=== PATIENT | male | born 1990 | race Caucasian/White ===

== ENCOUNTER 2017-08-25 22:18 | Emergency (ER) | payer OTHER ==
[~2017-08-25] VITALS: Ht 175.3 cm; Wt 86.0 kg
[2017-08-25 23:15] LABS: HEMATOCRIT 42.8 % (38.0-50.0); HEMOGLOBIN 14.3 G/DL (12.5-16.6); MCH 30.8 PG (29.0-34.0); MCHC 33.4 G/DL (30.0-36.0); MCV 92.2 FL (86-99); PLATELET COUNT 261 K/uL (156-360); RBC DIS.WIDTH-CV 12.7 % (11.8-14.6); RBC DIS.WIDTH-SD 42.9 % (39-53); RED BLOOD COUNT 4.64 M/uL (4.00-5.50); WHITE BLOOD COUNT 13.8 K/uL (4.1-10.2)
[2017-08-25 23:20] LABS: INTER. NORMALIZED RATIO 0.9
[2017-08-25 23:23] LABS: PTT 30.8 SEC (25-37)
[2017-08-25 23:28] LABS: ALBUMIN 4.1 g/dL (3.2-4.8); CHLORIDE 101 mEq/L (99-109); POTASSIUM 3.9 mEq/L (3.7-5.4); SODIUM 135 mEq/L (136-147)
[2017-08-25 23:30] LABS: GLUCOSE 106 mg/dL (70-99)
[2017-08-25 23:31] LABS: TOTAL PROTEIN 7.2 g/dL (6.4-8.3)
[2017-08-25 23:32] LABS: TOTAL BILIRUBIN 0.3 mg/dL (0.0-1.0)
[2017-08-25 23:33] LABS: SERUM ETHYL ALCOHOL < 10 mg/dL
[2017-08-25 23:34] LABS: ALKALINE PHOSPHATASE 68 IU/L (3-129); CREATININE 0.9 mg/dL (0.6-1.3)
[2017-08-25 23:35] LABS: GFR ESTIMATE (CALCULATED) > 59 mL/min/ (58.99-99999); UREA NITROGEN (BUN) 15 mg/dL (9-23)
[2017-08-25 23:36] LABS: AST (GOT) 37 IU/L (2-34)
[2017-08-25 23:37] LABS: ALT (GPT) 46 IU/L (3-49)
[2017-08-25 23:38] LABS: LIPASE 14 U/L (1.0-51.0)
[2017-08-26 00:49] LABS: AMPHETAMINE NEGATIVE (500 ng/mL); BARBITURATES NEGATIVE (200 ng/mL); BENZODIAZEPINES NEGATIVE (150 ng/mL); BUPRENORPHINE PRESUMPTIVE POSITIVE (10 ng/mL); COCAINE NEGATIVE (150 ng/mL); METHADONE NEGATIVE (200 ng/mL); METHAMPHETAMINE NEGATIVE (500 ng/mL); OPIATES (MORPHINE) NEGATIVE (100 ng/mL); OXYCODONE NEGATIVE (100 ng/mL); PHENCYCLIDINE NEGATIVE (25 ng/mL); PROPOXYPHENE NEGATIVE (300 ng/mL); THC CANNABINOIDS NEGATIVE (50 ng/mL); TRICYCLIC ANTIDEPRESSANTS NEGATIVE (300 ng/mL)
[2017-08-26 03:39] VITALS: BP 121/83
== END 2017-08-26 03:40 | disposition home or self-care (01) ==
LOC: EME 22:18
PROVIDERS: Emergency Medicine
DX: L03.115 Cellulitis of right lower limb (principal); R65.10 Systemic inflammatory response syndrome (SIRS) of non-infectious origin without acute organ dysfunction; F19.11 Other psychoactive substance abuse, in remission; F17.200 Nicotine dependence, unspecified, uncomplicated
CPT/HCPCS: 71045; 80053; 83605; 83690; 85027; 85610; 85730; 87040; 93005; 93970; 99281; 99285; G0480; J3370

== ENCOUNTER 2017-09-02 17:27 | Emergency (ER) | payer OTHER ==
[~2017-09-02] VITALS: Ht 175.3 cm; Wt 88.1 kg
[2017-09-02 18:29] LABS: HEMOGLOBIN 13.6 G/DL (12.5-16.6); MCH 30.6 PG (29.0-34.0); MCHC 33.2 G/DL (30.0-36.0); MCV 92.1 FL (86-99); PLATELET COUNT 287 K/uL (156-360); RBC DIS.WIDTH-CV 12.1 % (11.8-14.6); RBC DIS.WIDTH-SD 41.5 % (39-53); RED BLOOD COUNT 4.45 M/uL (4.00-5.50)
[2017-09-02 18:41] LABS: ALBUMIN 3.9 g/dL (3.2-4.8); CHLORIDE 102 mEq/L (99-109); POTASSIUM 4.2 mEq/L (3.7-5.4); SODIUM 139 mEq/L (136-147)
[2017-09-02 18:43] LABS: GLUCOSE 92 mg/dL (70-99); TOTAL PROTEIN 7.4 g/dL (6.4-8.3)
[2017-09-02 18:45] LABS: TOTAL BILIRUBIN 0.3 mg/dL (0.0-1.0)
[2017-09-02 18:47] LABS: ALKALINE PHOSPHATASE 66 IU/L (3-129); CREATININE 0.8 mg/dL (0.6-1.3); GFR ESTIMATE (CALCULATED) > 59 mL/min/ (58.99-99999)
[2017-09-02 18:48] LABS: UREA NITROGEN (BUN) 19 mg/dL (9-23)
[2017-09-02 18:49] LABS: AST (GOT) 34 IU/L (2-34)
[2017-09-02 18:50] LABS: ALT (GPT) 38 IU/L (3-49)
[2017-09-02] MEDS ORDERED: KEFLEX500 MG PO (19:04)
[2017-09-02 19:26] VITALS: BP 108/64
== END 2017-09-02 19:34 | disposition home or self-care (01) ==
LOC: EME 17:27
PROVIDERS: Nurse Practitioner Family
DX: L03.115 Cellulitis of right lower limb (principal); L03.116 Cellulitis of left lower limb; R05 Cough; R60.0 Localized edema; F17.200 Nicotine dependence, unspecified, uncomplicated
CPT/HCPCS: 71046; 80053; 81003; 83605; 85027; 87040; 99281; 99284